=== PATIENT | female | born 1990 | race African-American/Black ===

== ENCOUNTER 2016-06-13 22:31 | Emergency (ER) | payer MEDICAID ==
[~2016-06-13] VITALS: Ht 160 cm; Wt 50.8 kg
[2016-06-13 22:32] VITALS: BP 108/68
[2016-06-13] MEDS ORDERED: ONDANSETRON 4MG/2ML VIAL (J2405) IV ONE (23:30)
[2016-06-13] MEDS ORDERED: NS 1,000 ML IV ONE (23:30)
[2016-06-14 00:05] LABS: BASO % 0.3 % (0.0-1.0); EOS # 0.1 K/mm3 (0.0-0.50); EOS % 1.4 % (0.0-3.0); LARGE UNSTAINED CELL # 0.1 K/mm3 (0.0-0.4); LARGE UNSTAINED CELL % 1.8 % (0.0-4.0); LYMPH # 1.9 K/mm3 (1.5-6.5); LYMPH % 39.4 % (24.0-44.0); MEAN CORPUSCULAR HEMOGLOBIN 30.4 pg (27.0-33.0); MEAN CORPUSCULAR HGB CONC 32.4 g/dl (32.0-36.5); MONO # 0.2 K/mm3 (0.0-0.8); MONO % 5.1 % (0.0-5.0); NEUTROPHILS # 2.4 K/mm3 (1.8-7.7); PLATELET COUNT, AUTOMATED 147 k/mm3 (150-450); RED CELL DISTRIBUTION WIDTH 12.7 % (11.5-14.5); WHITE BLOOD COUNT 4.7 K/mm3 (4.0-10.0)
--- NOTE | 2016-06-14 00:30 | REPUSA ---
Clinical history: nausea. Findings: Real-time transabdominal and transvaginal ultrasound images of the pelvis were obtained. An anteverted uterus is noted. There is a single live intrauterine . The crown rump length coretta sures 3.2 cm. heart rate measures 187 bpm. No subchorionic hemorrhage is demonstrated. The righ t ovary measures 3.2 x 2.5 x 1.4 cm. The left ovary measures 3.1 x 2.9 cm. There is a 1.6 cm cyst in the left ovary. No adnexal masses are seen. Color Doppler flow is seen within both ovaries. There is no evidence of free fluid. Impression: 1. Single live intrauterine measuring 10 weeks, with a heart rate of 187 bpm. 2. Left ovarian corpus luteum cyst.
[2016-06-14 00:32] LABS: ANION GAP 10 MEQ/L (8-16); BLOOD UREA NITROGEN 4 MG/DL (7-18); CALCIUM LEVEL 9.1 MG/DL (8.5-10.1); CARBON DIOXIDE LEVEL 26 MEQ/L (21-32); CHLORIDE LEVEL 103 MEQ/L (98-107); CREATININE FOR GFR 0.48 MG/DL (0.55-1.02); GLOMERULAR FILTRATION RATE > 60.0 (>60); GLUCOSE, FASTING 85 MG/DL (70-105); HCG, SERUM QUANTITATIVE 125727 MIU/ML; POTASSIUM SERUM 4.1 MEQ/L (3.5-5.1); SODIUM LEVEL 139 MEQ/L (136-145)
[2016-06-14] MEDS ORDERED: NITR100C37 PO (01:26)
[2016-06-14] MEDS ORDERED: ZOFR4TAB3 PO (01:26)
[2016-06-14] MEDS ORDERED: NITROFURANTOIN (MACROBID) 100 MG CAP PO ONE (01:30)
== END 2016-06-14 01:41 | disposition home or self-care (01) ==
LOC: M ED 22:31
DX: O21.0 Mild hyperemesis gravidarum (principal); O26.891 Other specified pregnancy related conditions, first trimester; N83.12 Corpus luteum cyst of left ovary; Z3A.10 10 weeks gestation of pregnancy
CPT/HCPCS: 36415; 76801; 80048; 81001; 84702; 85025; 86850; 86900; 86901; 87086; 87210; 87491; 87591; 96361; 96374; 99283; J2405

== ENCOUNTER → 2016-06-19 | Outpatient (REF) | payer MEDICAID ==
[~2016-06-19] MED LIST: NITR100C37 PO; ZOFR4TAB3 PO
== END ==
LOC: M LAB REF 17:22
PROVIDERS: ATTEND Advanced Practice Midwife
DX: Z34.81 Encounter for supervision of other normal pregnancy, first trimester (principal)

== ENCOUNTER → 2016-06-26 | Outpatient (CLI) | payer MEDICAID ==
[2016-06-26 13:37] LABS: BASO % 0.4 % (0.0-1.0); EOS % 0.5 % (0.0-3.0); LARGE UNSTAINED CELL # 0.1 K/mm3 (0.0-0.4); LARGE UNSTAINED CELL % 1.4 % (0.0-4.0); LYMPH # 1.2 K/mm3 (1.5-6.5); LYMPH % 33.8 % (24.0-44.0); MEAN CORPUSCULAR HEMOGLOBIN 30.2 pg (27.0-33.0); MEAN CORPUSCULAR HGB CONC 32.9 g/dl (32.0-36.5); MEAN CORPUSCULAR VOLUME 91.8 fl (80.0-96.0); MONO # 0.1 K/mm3 (0.0-0.8); MONO % 3.5 % (0.0-5.0); NEUTROPHILS # 2.1 K/mm3 (1.8-7.7); NEUTROPHILS % 60.5 % (36.0-66.0); PLATELET COUNT, AUTOMATED 124 k/mm3 (150-450); RED CELL DISTRIBUTION WIDTH 12.5 % (11.5-14.5); WHITE BLOOD COUNT 3.5 K/mm3 (4.0-10.0)
[2016-06-26 13:40] LABS: ADD MORPHOLOGY? YES
[2016-06-26 14:18] LABS: HBsAg Prenatal NEGATIVE (NEGATIVE)
== END ==
LOC: M SMT 11:26
PROVIDERS: ATTEND Advanced Practice Midwife
DX: Z34.81 Encounter for supervision of other normal pregnancy, first trimester (principal)

== ENCOUNTER 2016-07-18 17:12 | Emergency (ER) | payer MEDICAID, OTHER ==
[~2016-07-18] VITALS: Ht 160 cm; Wt 50.8 kg
[2016-07-18 18:06] LABS: BASO % 0.2 % (0.0-1.0); EOS # 0.1 K/mm3 (0.0-0.50); EOS % 1.5 % (0.0-3.0); LARGE UNSTAINED CELL % 1.2 % (0.0-4.0); LYMPH # 1.1 K/mm3 (1.5-6.5); LYMPH % 26.6 % (24.0-44.0); MEAN CORPUSCULAR HEMOGLOBIN 30.3 pg (27.0-33.0); MEAN CORPUSCULAR HGB CONC 32.8 g/dl (32.0-36.5); MEAN CORPUSCULAR VOLUME 92.3 fl (80.0-96.0); MONO # 0.2 K/mm3 (0.0-0.8); NEUTROPHILS # 2.6 K/mm3 (1.8-7.7); NEUTROPHILS % 66.6 % (36.0-66.0); PLATELET COUNT, AUTOMATED 139 k/mm3 (150-450); RED CELL DISTRIBUTION WIDTH 12.7 % (11.5-14.5); WHITE BLOOD COUNT 3.8 K/mm3 (4.0-10.0)
[2016-07-18 18:38] LABS: ALBUMIN 3.5 GM/DL (3.2-5.2); ALBUMIN/GLOBULIN RATIO 1.03 (1.00-1.93); ALKALINE PHOSPHATASE 66 U/L (45-117); ALT/SGPT 13 U/L (12-78); ANION GAP 11 MEQ/L (8-16); AST/SGOT 10 U/L (15-37); BILIRUBIN,TOTAL 0.6 MG/DL (0.2-1.0); BLOOD UREA NITROGEN 5 MG/DL (7-18); CALCIUM LEVEL 8.9 MG/DL (8.5-10.1); CARBON DIOXIDE LEVEL 23 MEQ/L (21-32); CHLORIDE LEVEL 104 MEQ/L (98-107); CREATININE FOR GFR 0.47 MG/DL (0.55-1.02); GLOMERULAR FILTRATION RATE > 60.0 (>60); GLUCOSE, FASTING 70 MG/DL (70-105); HCG, SERUM QUANTITATIVE 66749 MIU/ML; POTASSIUM SERUM 4.4 MEQ/L (3.5-5.1); SODIUM LEVEL 138 MEQ/L (136-145); TOTAL PROTEIN 6.9 GM/DL (6.4-8.2)
--- NOTE | 2016-07-18 20:00 | REPUSA ---
CLINICAL HISTORY: Cramping. TECHNIQUE: Realtime sonographic images were obtained in multiple projections. COMMENTS: A single intrauterine is identified with BPD of 3.3 cm which corresponds to the mean [facility] age of 15 W 3 D. heart motion is present, 175 beats per minute. Estimated aver age gestation age by this US is 15 W 3 D. FW measures 119 grams. FW% measures 57. BPD measures 3.3. FL measures 1.7. HC measures 11.3. AC measures 9.1. HC/AC ratio measures 1.24. Placenta is right lateral without evidence of abruption. Left ovarian corpus lutheum cyst is seen. IMPRESSION: Single, live, intrauterine gestation, 15 weeks 3 days based on today's crown/rump length. Thank you for your kind referral of this patient. We appreciate the opportunity to participate in thi s patient's care.
[2016-07-18 20:32] VITALS: BP 119/68
== END 2016-07-18 20:41 | disposition home or self-care (01) ==
LOC: M ED 18:05
DX: O20.8 Other hemorrhage in early pregnancy (principal); Z3A.15 15 weeks gestation of pregnancy

== ENCOUNTER → 2016-08-24 | Outpatient (CLI) | payer OTHER ==
--- NOTE | 2016-08-25 03:44 | REP ---
Clinical: Anatomical evaluation. Comparison: 07/18/2016 . Findings: Examination demonstrates a single live intrauterine in breech presentation. motion is identified by technologist. Placenta is noted anteriorly and grade zero without evidence for placenta previa or abruption. Amniotic fluid volume is normal. Cervix measures 4.0 cm in length and appears closed. No evidence for nuchal cord. Gestational age by LMP 20 weeks 1 day with MARTY 01/10/2017 . Gestational age by current measurements 20 weeks 1 day with MARTY 01/10/2017 . FHR equals 157 beats per minute. BPD 4.9 cm 20 weeks 5 days HC 17.8 cm 20 weeks 2 days AC 14.3 cm 19 weeks 4 days FL 3.4 cm 20 weeks 0 days HL 3.4 cm 21 weeks 5 days HC/AC ratio 1.25 Estimated weight 332 grams ( 47th percentile). Anatomical assessment demonstrates normal structures including cranium, choroid plexus, cavum, cerebellum/posterior fossa, facial features, lungs, four-chamber heart, diaphragm, stomach, cord insertion/three-vessel cord, kidneys/bladder, and extremities. Limited evaluation of the cardiac ventricular outflow tracts along with prominent chordae tendineae and limited evaluation of the spine noted. Impression: 1. Single live intrauterine in breech presentation demonstrating appropriate interval growth. 2. Anatomical limitations as described above may warrant reevaluation and follow-up. Signed by Davis Chamberlain MD 08/25/2016 03:35 A
== END ==
LOC: M SMT 13:58
PROVIDERS: ATTEND Obstetrics & Gynecology
DX: Z34.02 Encounter for supervision of normal first pregnancy, second trimester (principal)

== ENCOUNTER → 2016-10-01 | Outpatient (CLI) | payer OTHER ==
[~2016-10-01] MED LIST changes: -NITR100C37 PO; +NITR100C39 PO; +PRENTAB9 PO
--- NOTE | 2016-10-02 04:32 | REP ---
Clinical: Anatomical re-evaluation. Comparison: 08/24/2016 . Findings: Examination demonstrates a single live intrauterine in breech presentation. motion is identified by technologist. Placenta is noted anteriorly and grade one without evidence for placenta previa or abruption. Amniotic fluid volume is normal. Cervix measures 3.9 cm in length and appears closed. No evidence for nuchal cord. Gestational age by LMP 25 weeks 4 day with MARTY 01/10/2017 . Gestational age by current measurements 25 weeks 2 days with MARTY 01/12/2017 . FHR equals 153 beats per minute. Estimated weight 789 grams ( 34th percentile). Anatomical assessment demonstrates normal structures including cranium, choroid plexus, cavum, cerebellum/posterior fossa, facial features, lungs, four-chamber heart/ventricular outflow tracts, diaphragm, stomach, cord insertion/three-vessel cord, kidneys/bladder, spine, and extremities. Impression: Single live intrauterine in breech presentation demonstrating appropriate interval growth. Anatomical assessment is essentially complete and normal. Echogenic focus in the left cardiac ventricle likely prominent chordae tendineae. Signed by Davis Chamberlain MD 10/02/2016 04:23 A
== END ==
LOC: M SMT 13:27
PROVIDERS: ATTEND Obstetrics & Gynecology
DX: Z36 Encounter for antenatal screening of mother (principal)

== ENCOUNTER → 2016-10-14 | Outpatient (CLI) | payer OTHER ==
[2016-10-14 18:51] LABS: MEAN CORPUSCULAR HEMOGLOBIN 31.2 pg (27.0-33.0); MEAN CORPUSCULAR HGB CONC 32.9 g/dl (32.0-36.5); MEAN CORPUSCULAR VOLUME 94.8 fl (80.0-96.0); RED CELL DISTRIBUTION WIDTH 13.4 % (11.5-14.5); WHITE BLOOD COUNT 4.4 K/mm3 (4.0-10.0)
== END ==
LOC: M SMT 13:19
PROVIDERS: ATTEND Obstetrics & Gynecology
DX: Z34.82 Encounter for supervision of other normal pregnancy, second trimester (principal)

== ENCOUNTER → 2016-11-03 | Outpatient (CLI) | payer OTHER ==
--- NOTE | 2016-11-03 21:34 | REP ---
Clinical: Size less than dates . Comparison: 10/01/2016 . Findings: Examination demonstrates a single live intrauterine in cephalic presentation. motion is identified by technologist. Placenta is noted anteriorly and grade one without evidence for placenta previa or abruption. Amniotic fluid volume is normal. Cervix measures 3.4 cm in length and appears closed. Nuchal cord identified. Gestational age by LMP 30 weeks 2 days with MARTY 01/10/2017 . Gestational age by current measurements 29 weeks 6 days with MARTY 01/13/2017 . FHR equals 147 beats per minute. BPD 7.7 cm 31 weeks 0 days HC 28.3 cm 31 weeks 1 day AC 24.5 cm 28 weeks 5 days FL 5.7 cm 30 weeks 1 day HL 5.4 cm 31 weeks 2 days HC/AC ratio 1.16 Estimated weight 1430 grams ( 26th percentile). Amniotic fluid index equals 10.2 cm (8.9 - 23.5). Impression: Single live intrauterine in cephalic presentation demonstrating appropriate interval growth. No gross abnormalities are identified. Amniotic fluid index and estimated weight are within normal range. Nuchal cord noted. Signed by Davis Chamberlain MD 11/03/2016 09:26 P
== END ==
LOC: M SMT 13:55
PROVIDERS: ATTEND Obstetrics & Gynecology
DX: O26.842 Uterine size-date discrepancy, second trimester (principal)

== ENCOUNTER → 2016-12-15 | Outpatient (REF) | payer OTHER ==
[~2016-12-15] MED LIST changes: +ACET50TA PO; +IBUP-1114 PO
== END ==
LOC: M LAB REF 16:59
PROVIDERS: ATTEND Advanced Practice Midwife
DX: Z34.83 Encounter for supervision of other normal pregnancy, third trimester (principal)

== ENCOUNTER → 2016-12-28 | Outpatient (CLI) | payer OTHER ==
--- NOTE | 2016-12-28 15:40 | REP ---
Obstetric ultrasound: There is a single intrauterine gestation in a vertex presentation. heart rate is 141 beats minute. The placenta is anterior. There is no previa. The amniotic fluid volume subjectively appears normal. The amniotic fluid index is low measuring 4.6 (M 0.3 - 23.8, compatible with oligohydramnios. Gestational Age: By LMP: 38 w 1.0 d By First US: 38 w 1.0 d By Today's US: 36 w 6.0 d Weight: 3063 gm/ 6 lbs, 12 oz Wt% 39 % for 38 w 1.0 d S/D ratio 3.04 (2.30-3.30) Resistive Index 0.67 (0.59-0.75 Diastolic Velocity 9.7 (>10 cm/sec) . Impression: The amniotic fluid volume subjectively is normal. However, the amniotic fluid index is compatible with oligohydramnios. Signed by Aaron Bush MD 12/28/2016 03:31 P
== END ==
LOC: M SMT 13:55
PROVIDERS: ATTEND Obstetrics & Gynecology
DX: Z36.2 Encounter for other antenatal screening follow-up (principal)

== ENCOUNTER 2017-01-14 08:59 | Inpatient (IN) | payer OTHER ==
[~2017-01-14] VITALS: Ht 160 cm; Wt 65.8 kg
[2017-01-14] VITALS (34 sets, daily range): BP systolic 94–132; BP diastolic 51–91
[~2017-01-14 08:59] MED LIST changes: -ACET50TA PO; -IBUP-1114 PO
--- NOTE | 2017-01-14 09:58 | IPNPDOC ---
Text Note Date of Service The patient was seen on 01/14/17. NOTE 25yo 40 4/7 weeks gestation arrived to L and D with complaints of contractions since 0200. Patient denies any LOF, small bleeding when wiped. Fetus is active. Patient accompanied by her mother. O: Appears in NAD, talking and smiling Vital signs stable FHR: 160, moderate variability,+ accels, -decels CTX: irregular contractions 3-6 mins apart, lasting 45-60sec SVE: 350/-2, light show on glove, unchanged from office yesterday A: 40+ weeks gestation, category 1 tracing P: Hydrate, ambulate, reassess, reviewed with patient inability to admit for scheduled induction at this time. Will reassess for augmentation later. VS,Fishbone, I+O VS, Fishbone, I+O Vital Signs Date Time Temp Pulse Resp B/P (MAP) Pulse Ox O2 Delivery O2 Flow Rate FiO2 01/14/17 09:15 70 16 117/69 (85) Saundra Davenport CNM Jan 14, 2017 09:58
[2017-01-14] MEDS ORDERED: LACTATED RINGER'S 1000 ML IV STA (10:59)
[2017-01-14] MEDS ORDERED: OXYTOCIN DRIP 30 UNITS in APPROPRIATE DILUENT 1 EA IV SCH (11:00)
[2017-01-14] MEDS ORDERED: LR 1,000 ML IV SCH (11:00)
--- NOTE | 2017-01-14 11:27 | HPEPDOC ---
[facility] Medical History & Physical Date of Admission Jan 14, 2017 Other Provider Imani Attending Physician: Saundra Davenport CNM History and Physical HISTORY & PHYSICAL EXAMINATION DATE OF ADMISSION: 01/14/2017 25-year-old, 1, para 0, at 40 4/7 weeks gestation by last menstrual period of 04/05/2016 for an estimated date of delivery of 01/10/2017 presents with complaints of contractions starting around 0200. Upon evaluation, she is 3 cm, 50% effaced, -2 station, with bloody show. She reports active movement. Denies loss of fluid or heavy bleeding. Sono at 10 weeks 0 days confirmed her due date. Prepregnancy weight was 118 lbs. Total weight gain 28 pounds. She has been normotensive through the . Last office visit was at 40 weeks 3 days on 01/13/17. has been uncomplicated with the exception of first and second trimester bleeding that has been resolved. Anatomy scan within normal limits.with the exception of echogenic focus in left cardiac ventricle likely prominent chordae tendineae. ALLERGIES: NKDA. MEDICAL/SURGICAL HISTORY: unremarkable FAMILY HISTORY: Noncontributory SOCIAL HISTORY: Single. Mother is present at bedside. Supportive. Denies tobacco, alcohol or drugs. No history sexually transmitted infections OBJECTIVE: Labs are B+, antibody negative. Initial hemoglobin and hematocrit 12.7 and 38.6 with platelets of 124. Rubella immune. VDRL, hepatitis B, hepatitis C, HIV, gonorrhea, chlamydia all negative. Genetic screening declined. 1 hour GCT 99. Group B strep is negative. VITAL SIGNS: Stable. She is in no apparent distress, coping well. Abdomen is soft, gravid, nontender, longitudinal lie, vertex by Charlie. Contractions irregular 3-6 minutes apart , lasting 45-60 seconds, moderate to palpation. heart 150, moderate variability with accelerations, category 1 tracing. Occasional variable decelerations. Sterile vaginal exam: 3 cm, 50% effaced, -2 station, intact membranes and cephalic, bloody show. ASSESSMENT: 25-year-old, 1, at 40 weeks 4 days gestation, scheduled elective induction of labor, category 1 tracing. PLAN: Admit to L and D. Induce with IV Pitocin per consult Dr Diallo. Possibly AROM. Plans for an epidural. Anticipate normal spontaneous vaginal . Vital Signs Vital Signs Date Time Temp Pulse Resp B/P (MAP) Pulse Ox O2 Delivery O2 Flow Rate FiO2 01/14/17 09:15 70 16 117/69 (85) Home Medications Scheduled Multivitamins/ ( 27-0.8 mg) 1 Tab Tab, 1 TAB PO DAILY Allergies Coded Allergies: No Known Allergies (Unverified , 06/13/16) Saundra Davenport CNM Jan 14, 2017 11:27
[2017-01-14 12:51] LABS: MEAN CORPUSCULAR HGB CONC 31.7 g/dl (32.0-36.5); MEAN CORPUSCULAR VOLUME 88.4 fl (80.0-96.0); PLATELET COUNT, AUTOMATED 120 10^3/uL (150-450); RED CELL DISTRIBUTION WIDTH 13.8 % (11.5-14.5); WHITE BLOOD COUNT 6.7 10^3/uL (4.0-10.0)
--- NOTE | 2017-01-14 14:48 | IPNPDOC ---
Text Note Date of Service The patient was seen on 01/14/17. NOTE S: Patient feeling contractions in her back. Appears tense. FOB at bedside and supportive. O: Vital signs stable FHR:150, moderate variability, + accels, + late decels, CTX:2-3 mins apart, 60 secs, moderate to palpate SVE: 3/50%/-1/ bloody show Pitocin at 4mu A: 40+ week gestation, category 2 P: Continue induction with Pitocin, encouraged OOB to ambulate and reposition. Patient considering epidural when ready. Notified Dr Diallo on patient's status and strip. VS,Fishbone, I+O VS, Fishbone, I+O Laboratory Tests 01/14/17 12:24 Red Blood Count 3.78 L, Mean Corpuscular Volume 88.4, Mean Corpuscular Hemoglobin 28.0, Mean Corpuscular Hemoglobin Concent 31.7 L, Red Cell Distribution Width 13.8 Vital Signs Date Time Temp Pulse Resp B/P (MAP) Pulse Ox O2 Delivery O2 Flow Rate FiO2 01/14/17 09:15 70 16 117/69 (85) 01/14/17 09:15 98.7 I&O- Last 24 Hours up to 6 AM 01/15/17 06:00 Intake Total 502 ml Balance 502 ml Saundra Davenport CNM Jan 14, 2017 14:47
[2017-01-14] MEDS ORDERED: FENTANYL 2MCG/ML ROPIVACAINE 0.2% IN 0.9% NACL 200ML IVBAG As Ordered ONE (16:48)
--- NOTE | 2017-01-14 16:58 | IPNPDOC ---
Text Note Date of Service The patient was seen on 01/14/17. NOTE Becoming uncomfortable Pitocin @ 6mu UC 2-5 minutes apart x 60 seconds FH 145, moderate variability, + accels, occasional variable and late decels Pt is very tense Discussed relaxation, pt requesting epidural Dr Talbot updated regarding pt status and Cat II tracing VS,Fishbone, I+O VS, Fishbone, I+O Laboratory Tests 01/14/17 12:24 Red Blood Count 3.78 L, Mean Corpuscular Volume 88.4, Mean Corpuscular Hemoglobin 28.0, Mean Corpuscular Hemoglobin Concent 31.7 L, Red Cell Distribution Width 13.8 Vital Signs Date Time Temp Pulse Resp B/P (MAP) Pulse Ox O2 Delivery O2 Flow Rate FiO2 01/14/17 09:15 70 16 117/69 (85) 01/14/17 09:15 98.7 I&O- Last 24 Hours up to 6 AM 01/15/17 06:00 Intake Total 758 ml Balance 758 ml Saundra Davenport CNM Jan 14, 2017 16:58
[2017-01-14] MEDS ORDERED: EPIDURAL COMMENT XX SCH (18:00)
[2017-01-14] MEDS ORDERED: LACTATED RINGER'S 1000 ML IV PRN (18:00)
[2017-01-14] MEDS ORDERED: diphenhydrAMINE INJ 50MG/ML VIAL (J1200) IV PRN (18:00)
[2017-01-14] MEDS ORDERED: ePHEDrine SULFATE 25 MG/5 ML(5MG/ML) SYRINGE IV PRN (18:00)
[2017-01-14] MEDS ORDERED: ONDANSETRON 4MG/2ML VIAL (J2405) IV PRN (18:00)
[2017-01-14] MEDS ORDERED: EPIDURAL/PCA KEYS XX PRN (18:00)
[2017-01-14] MEDS ORDERED: NALOXONE INJ 0.4 MG/1 ML VIAL (J2310) IV PRN (18:00)
[2017-01-14] MEDS ORDERED: REFRIGERATOR IV KEYS XX PRN (18:00)
[2017-01-14] MEDS ORDERED: FENTANYL/ROPIVACAINE/NACL BAG 200 ML EPIDURAL SCH (18:00)
--- NOTE | 2017-01-14 18:40 | IPNPDOC ---
Text Note Date of Service The patient was seen on 01/14/17. NOTE Comfortable with epidural FH 145, moderate variability,+ accels, occasional variables and late decels, Cat II UC 2-4 minutes apart x 60 seconds, moderate. Pitocin @ 8mu SVE 90/0, SROM with exam moderate amount thin meconium Dr Talbot updated on pt status. Continue to support and observe VS,Fishbone, I+O VS, Fishbone, I+O Laboratory Tests 01/14/17 12:24 Red Blood Count 3.78 L, Mean Corpuscular Volume 88.4, Mean Corpuscular Hemoglobin 28.0, Mean Corpuscular Hemoglobin Concent 31.7 L, Red Cell Distribution Width 13.8 Vital Signs Date Time Temp Pulse Resp B/P (MAP) Pulse Ox O2 Delivery O2 Flow Rate FiO2 01/14/17 09:15 70 16 117/69 (85) 01/14/17 09:15 98.7 I&O- Last 24 Hours up to 6 AM 01/15/17 06:00 Intake Total 758 ml Balance 758 ml Saundra Davenport CNM Jan 14, 2017 18:40
--- NOTE | 2017-01-14 20:33 | IPNPDOC ---
Text Note Date of Service The patient was seen on 01/14/17. NOTE Patient appears to be sleeping with epidural. Can feel increase pain in the lower pelvic region. Mother at bedside. CTX: 2-4 mins, 70-90 seconds FHR: 150, moderate variability with accelerations, late decelerations lowest to 90-100s. Pitocin at 10mu SVE: / Dr Talbot updated on patient's status and will be in shortly. Continue to monitor VS,Fishbone, I+O VS, Fishbone, I+O Laboratory Tests 01/14/17 12:24 Red Blood Count 3.78 L, Mean Corpuscular Volume 88.4, Mean Corpuscular Hemoglobin 28.0, Mean Corpuscular Hemoglobin Concent 31.7 L, Red Cell Distribution Width 13.8 Vital Signs Date Time Temp Pulse Resp B/P (MAP) Pulse Ox O2 Delivery O2 Flow Rate FiO2 01/14/17 17:53 72 108/58 (75) 01/14/17 14:06 18 01/14/17 09:15 98.7 I&O- Last 24 Hours up to 6 AM 01/15/17 06:00 Intake Total 758 ml Balance 758 ml Saundra Davenport CNM Jan 14, 2017 20:33
[2017-01-14 22:16] LABS: CORD GAS ABE V -2.1; CORD GAS HCO3 V 23.9 MEQ/L; CORD GAS PH V 7.343 UNITS; CORD GAS PO2 V 34.5 mmHg; CORD GAS SBC V 22.1 MEQ/L; CORD GAS TCO2 V 25.3 MEQ/L
[2017-01-14] MEDS ORDERED: METHYLERGONOVINE MALEATE 0.2 MG TAB PO PRN (22:45)
[2017-01-14] MEDS ORDERED: DIBUCAINE 1% OINTMENT 30GM TOP PRN (22:45)
[2017-01-14] MEDS ORDERED: RHOGAM 300 MCG (1500 IU) INJ (J2790) IM SCH (22:45)
[2017-01-14] MEDS ORDERED: MEASLES,MUMPS,RUBELLA VACCINE INJ (MMR-II) (90707) SC SCH (22:45)
[2017-01-14] MEDS ORDERED: DOCUSATE SODIUM 100 MG CAP PO PRN (22:45)
[2017-01-14] MEDS ORDERED: MOM 30ML SUSPENSION UDC PO PRN (22:45)
[2017-01-14] MEDS ORDERED: ACETAMINOPHEN 500 MG TAB PO PRN (22:45)
--- NOTE | 2017-01-14 22:57 | DNPDOC ---
[facility] Delivery Note Delivery Note DATE OF DELIVERY: 01/14/2017 PREDELIVERY DIAGNOSIS: 40 4/7 weeks' gestation and labor. POST DELIVERY DIAGNOSIS: Delivered. PROCEDURE: Spontaneous vaginal delivery. PROVIDER: Agata LEDBETTER and Nina Davenport CNM ANESTHESIA: epidural. ESTIMATED BLOOD LOSS: 300 mL. FINDINGS: 6 pound 7 ounce male infant, Score 8/9, nuchal cord times 1. DELIVERY SUMMARY: Patient is a 26-year-old 1 now para 1001 who was admitted to labor and delivery for elective induction of labor at term 40 w4d. Patient arrived to and D in spontaneous early labor willy irregularly. Patient induced with IV Pitocin. She utilized an epidural for labor coping. SROM at 1828 with light mec. Fully dilated at 2158. Viable male infant delivered OA to LOT with gentle downward traction with nuchal cord x 1 at 2205. was placed on maternal abdomen for transition, tactile stimulation and blow by o2. Cord was clamped x2 and cut by FOB after pulsation ceased under my direction. Venous cord blood gas PH was 7.343, base excess -2.1. Placenta bipin , intact with a three vessel crd was delivered at 2214. EBL 300ml. Fundus was firm with massage and IV Pitocin. Perineum, cervix and vagina inspected. 2nd degree laceration to posterior vaginal wall was repaired with a 3-0 vicryl rapide with excellent hemostasis. weighed 6lb 7oz/ 2970 grams, apgaras 8/ 9. Parents are naming their son Celia. Sharps, instruments and sponges were counted and verified. was attended by Agata LEDBETTER and Nina Davenport CNM. Dr Talbot was in the building for delivery due to monitoring abnormalities. Saundra Davenport CNM Jan 14, 2017 22:57
[2017-01-15 02:00] VITALS: BP 132/70
[2017-01-15 06:00] VITALS: BP 132/61
[2017-01-15] MEDS: PRENATAL VITAMINS CHEWABLE TABLET PO SCH (07:38)
[2017-01-15] MEDS: IBUPROFEN 800 MG TAB PO PRN (10:45)
[2017-01-15 17:41] VITALS: BP 135/70
[2017-01-16] MEDS: IBUPROFEN 800 MG TAB PO PRN (05:51)
[2017-01-16 06:02] VITALS: BP 120/74
[2017-01-16] MEDS: PRENATAL VITAMINS CHEWABLE TABLET PO SCH (10:41)
[2017-01-16] MEDS ORDERED: ACET50TA PO (10:46)
[2017-01-16] MEDS ORDERED: IBUP-1114 PO (10:46)
== END 2017-01-16 11:40 | disposition home or self-care (01) | DRG 560 ==
LOC: M LDO 08:59 → M LDI 10:34 → M OBS 01-15 01:30
PROVIDERS: ADMIT Advanced Practice Midwife; ATTEND Advanced Practice Midwife
PROC: 10E0XZZ Delivery of Products of Conception, External Approach (ICD-10-PCS; principal; 2017-01-14)
PROC: 0KQM0ZZ Repair Perineum Muscle, Open Approach (ICD-10-PCS; 2017-01-14)
PROC: 3E033VJ Introduction of Other Hormone into Peripheral Vein, Percutaneous Approach (ICD-10-PCS; 2017-01-14)
DX: O48.0 Post-term pregnancy (principal); O69.82X0 Labor and delivery complicated by other cord entanglement, without compression, not applicable or unspecified; Z37.0 Single live birth; Z3A.40 40 weeks gestation of pregnancy; O70.1 Second degree perineal laceration during delivery

== ENCOUNTER → 2017-02-26 | Outpatient (CLI) | payer OTHER ==
[~2017-02-26] MED LIST changes: +ACET50TA PO; +IBUP-1114 PO
== END ==
LOC: M SMT 09:31
PROVIDERS: ATTEND Advanced Practice Midwife
DX: Z11.3 Encounter for screening for infections with a predominantly sexual mode of transmission (principal)